=== PATIENT | female | born 1985 | race Caucasian/White ===

== ENCOUNTER 2017-02-25 17:23 | Emergency (ER) | payer MEDICAID ==
--- NOTE | 2017-02-25 19:24 | ER Document Report ---
ED Medical Screen (RME) - General Chief Complaint: Vaginal Bleeding Stated Complaint: VAGINAL BLEEDING W/ Mode of Arrival: Ambulatory Information source: Patient Notes: Reports , spotting , Rlq abd pain this am. TRAVEL OUTSIDE OF THE [place] IN LAST 30 DAYS: No - Related Data Allergies/Adverse Reactions: No Known Allergies Allergy (Verified 02/25/17 17:41) Past Medical History Neurological Medical History: Reports: Hx Migraine Endocrine Medical History: Reports: Hx Hypothyroidism Renal/ Medical History: Reports: Hx Ovarian Cysts. Denies: Hx Peritoneal Dialysis Past Surgical History: Reports: Hx Genitourinary Surgery - LEEP, Hx Oral Surgery - WISDOM TEETH - Immunizations Hx Diphtheria, Pertussis, Tetanus Vaccination: No Physical Exam - Vital signs Vitals: Temp Pulse Resp BP Pulse Ox 98.5 F 78 16 139/90 H 100 02/25/17 17:41 02/25/17 17:41 02/25/17 17:41 02/25/17 17:41 02/25/17 17:41 Course - Vital Signs Vital signs: Temp Pulse Resp BP Pulse Ox 98.5 F 78 16 139/90 H 100 02/25/17 17:41 02/25/17 17:41 02/25/17 17:41 02/25/17 17:41 02/25/17 17:41
[2017-02-25 20:35] LABS: ABSOLUTE EOSINOPHILS # (AUTO) 0.1 10^3/uL (0.0-0.6); ABSOLUTE LYMPHOCYTES (AUTO) 3.4 10^3/uL (0.5-4.7); ABSOLUTE MONOCYTES (AUTO) 0.5 10^3/uL (0.1-1.4); BASOPHILS % (AUTO) 0.3 % (0-2); EOSINOPHILS % (AUTO) 0.6 % (0-6); HEMOGLOBIN 13.5 g/dL (12.0-15.5); HGB HCT DIFFERENCE 0.5; LYMPHOCYTES % (AUTO) 30.8 % (13-45); MEAN CORPUSCULAR HEMOGLOBIN 30.7 pg (27.0-33.4); MEAN CORPUSCULAR HGB CONC 33.7 g/dL (32.0-36.0); MEAN CORPUSCULAR VOLUME 91 fl (80-97); MONOCYTES % (AUTO) 4.7 % (3-13); RED CELL DISTRIBUTION WIDTH 13.4 % (11.5-14.0); SEGMENTED NEUTROPHILS % (AUTO) 63.6 % (42-78)
[2017-02-25 20:38] LABS: APPEARANCE,URINE SLIGHTLY-CLOUDY; BILIRUBIN,URINE NEGATIVE (NEGATIVE); GLUCOSE, URINE NEGATIVE (NEGATIVE); KETONES,URINE 20 mg/dL (NEGATIVE); LEUKOCYTE ESTERASE,URINE TRACE (NEGATIVE); NITRITE,URINE NEGATIVE (NEGATIVE); PROTEIN,URINE NEGATIVE (NEGATIVE); URINE SPECIFIC GRAVITY 1.006; UROBILINOGEN,URINE NEGATIVE mg/dL (<2.0)
[2017-02-25 20:50] LABS: ALANINE AMINOTRANSFERASE 28 U/L (9-52); ALBUMIN 4.7 g/dL (3.5-5.0); ALKALINE PHOSPHATASE 60 U/L (38-126); ANION GAP 15 (5-19); ASPARTATE AMINO TRANSFERASE 21 U/L (14-36); BILIRUBIN,DIRECT 0.2 mg/dL (0.0-0.4); BILIRUBIN,TOTAL 0.9 mg/dL (0.2-1.3); BLOOD UREA NITROGEN 9 mg/dL (7-20); CARBON DIOXIDE 23 mmol/L (22-30); CHLORIDE 104 mmol/L (98-107); CREATININE RESULT 0.67 mg/dL (0.52-1.25); GLUCOSE 78 mg/dL (75-110); POTASSIUM 4.5 mmol/L (3.6-5.0); SODIUM 141.5 mmol/L (137-145); TOTAL PROTEIN 7.5 g/dL (6.3-8.2)
--- NOTE | 2017-02-25 21:09 | ER Document Report ---
ED General - General Chief Complaint: Vaginal Bleeding Stated Complaint: VAGINAL BLEEDING W/ Mode of Arrival: Ambulatory Information source: Patient Notes: Patient presents to the emergency department with complaints of spotting on and off since Sunday morning. She reports vaginal bleeding only when she wipes. She noted a few drops of blood in her underwear over. She never had to wear a panty liner. Patient reports right lower quadrant abdominal pain that started this morning. No pain now. Reports she is last menstrual period at the end of December. . Reports she had a confirmation of this at her primary care provider but has not had a checkup by her GUN STOCK MAKER. Denies trauma. Denies other symptoms such as fever vomiting diarrhea. History of hypothyroidism. Denies trauma. Denies pain with void denies vaginal discharge. TRAVEL OUTSIDE OF THE [place] IN LAST 30 DAYS: No - HPI Onset: Yesterday Onset/Duration: Waxing and waning Quality of pain: Cramping Severity: Moderate Pain Level: 3 - DECLINES PAIN MEDICATION Associated symptoms: None Exacerbated by: Denies Relieved by: Denies Similar symptoms previously: No Recently seen / treated by doctor: No - Related Data Allergies/Adverse Reactions: No Known Allergies Allergy (Verified 02/25/17 17:41) Past Medical History - General Information source: Patient Last Menstrual Period: End december - Social History Smoking Status: Unknown if Ever Smoked Cigarette use (# per day): No Frequency of alcohol use: Occasional Drug Abuse: None Lives with: Family Family History: Reviewed & Not Pertinent Patient has suicidal ideation: No Patient has homicidal ideation: No Neurological Medical History: Reports: Hx Migraine Endocrine Medical History: Reports: Hx Hypothyroidism Renal/ Medical History: Reports: Hx Ovarian Cysts. Denies: Hx Peritoneal Dialysis Past Surgical History: Reports: Hx Genitourinary Surgery - LEEP, Hx Oral Surgery - WISDOM TEETH - Immunizations Hx Diphtheria, Pertussis, Tetanus Vaccination: No Review of Systems - Review of Systems Notes: Review HPI for review of systems., All other systems negative Physical Exam - Vital signs Vitals: Temp Pulse Resp BP Pulse Ox 98.5 F 78 16 139/90 H 100 02/25/17 17:41 02/25/17 17:41 02/25/17 17:41 02/25/17 17:41 02/25/17 17:41 - Notes Notes: PHYSICAL EXAMINATION: GENERAL: Well-appearing and in no acute distress nontoxic looking HEAD: Atraumatic, normocephalic. EYES: Pupils equal round , extraocular movements intact, sclera anicteric, conjunctiva are normal. ENT: nares patent, oropharynx clear without exudates. Moist mucous membranes. NECK: Normal range of motion, supple without lymphadenopathy LUNGS: CTAB and equal. No wheezes rales or rhonchi. HEART: Regular rate and rhythm without murmurs ABDOMEN: Soft, no tenderness. no pain with palpation No guarding, no rebound BACK: Denies pain EXTREMITIES: Normal range of motion, no pitting edema. No cyanosis. NEUROLOGICAL: Cranial nerves grossly intact. Normal sensory/motor exams. PSYCH: Normal mood, normal affect. SKIN: Warm, Dry, normal turgor, no rashes or lesions noted Course - Re-evaluation Re-evalutation: 02/25/17 21:17 Patient reports vaginal bleeding has tapered off. Denies abdominal pain. Waiting for ultrasound. 02/26/17 Patient instructed on hCG 169.75. Patient was also instructed on ultrasound no IUP identified. We discussed miscarriage versus ectopic. Patient was instructed on the importance of follow-up with repeat hCG. rhogram ordered. She will follow up with repeat hCG and contact me on Sunday. Patient was also instructed on importance of follow-up with her primary care provider or SENIOR LINUX ADMINISTRATOR as soon as possible. She verbalized understanding to all instructions. - Vital Signs Vital signs: Temp Pulse Resp BP Pulse Ox 97.4 F 82 16 126/87 H 99 02/25/17 23:25 02/25/17 23:25 02/25/17 23:25 02/25/17 23:25 02/25/17 23:25 - Laboratory Result Diagrams: 02/25/17 19:45 02/25/17 19:45 Laboratory results interpreted by me: 02/25/17 02/25/17 02/25/17 19:45 19:45 19:50 WBC 11.0 H Beta HCG, Quant 169.75 H Urine Ketones 20 H Urine Blood MODERATE H Ur Leukocyte Esterase TRACE H - Diagnostic Test Radiology reviewed: Image reviewed, Reports reviewed - Diagnostic report text EXAM DESCRIPTION: U/S OB TRANSVAGINAL W/O DOP COMPLETED DATE/TIME: 02/25/2017 10:00 pm REASON FOR STUDY: , bleeding COMPARISON: None. TECHNIQUE : Dynamic and static grayscale images acquired of the pelvis via transvaginal approach and recorded on PACS. Additional selected color Doppler and spectral images recorded. LIMITATIONS: None. FINDINGS: UTERUS: Contour normal. No mass. ENDOMETRIAL STRIPE: No focal or generalized thickening. No masses. CERVIX: No nabothian cysts. RIGHT OVARY: 2.3 cm cyst RIGHT OVARY DOPPLER: Normal arterial vascular flow without evidence for torsion. LEFT OVARY: No abnormal masses. LEFT OVARY DOPPLER: Normal arterial vascular flow without evidence for torsion. FREE FLUID: None noted. OTHER: No other significant finding. MEASUREMENTS: UTERUS: 7.3 x 5.2 x 4.4 cm ENDOMETRIAL STRIPE: 1.4 cm RIGHT OVARY: 3.8 x 3.7 x 2.2 cm LEFT OVARY: 3.5 x 1.9 x 1.9 cm TECHNICAL DOCUMENTATION: JOB ID: [id number] [employer]- All Rights Reserved US/U/S OB TRANSVAGINAL W/O DOP IMPRESSION: No IUP identified. No adnexal masses or free fluid. Discharge - Discharge Clinical Impression: Vaginal bleeding, , Elevated blood pressure reading Condition: Stable Disposition: HOME, SELF-CARE Instructions: Ob-Sales Team Manager Doctors, [facility], ([facility]) , [facility] ([facility]) Additional Instructions: *You have been evaluated for abdominal pain, vaginal bleeding, elevated blood pressure reading *Since we cannot see the on the ultrasound, you will need a beta-hCG blood level repeated. Please return to the outpatient lab at [facility] with your lab slip for this repeat test in 48 hours. Since ectopic can cause in a matter of hours, you must not be left alone at this time until you are cleared by your doctor for this diagnosis. Until then please maintain pelvic rest, meaning no sex until cleared to do so. Return right away with vaginal bleeding or severe pain. Your HCG level today was 169.75. You will need a repeat HCG level on SundayFebruary 27. Call Pat at [phone] two hours after your blood test for your results. *Follow up with your primary care provider for recheck within one week Follow up with the health department as scheduled *Return to ED for worsening condition, changes, needs *Return to ED if not better in 24 hours Monitor your blood pressure. Your blood pressure was elevated today. This may be because you were anxious, in pain or because you need medication. It is important to follow up with your primary care provider for full evaluation. Forms: Elevated Blood Pressure, Follow-Up Laboratory Testing
[2017-02-26 00:36] VITALS: BP 126/87
== END 2017-02-25 23:25 | disposition home or self-care (01) ==
LOC: ER 17:23
DX: O46.90 Antepartum hemorrhage, unspecified, unspecified trimester (principal); O26.899 Other specified pregnancy related conditions, unspecified trimester; R10.31 Right lower quadrant pain; R03.0 Elevated blood-pressure reading, without diagnosis of hypertension; O36.0990 Maternal care for other rhesus isoimmunization, unspecified trimester, not applicable or unspecified; Z3A.00 Weeks of gestation of pregnancy not specified; Z87.42 Personal history of other diseases of the female genital tract
CPT/HCPCS: 99284; 86900; 86901; 36415; 86850; 84702; 85025; 80053; 81001; 76817; J2790

== ENCOUNTER → 2017-02-27 | Outpatient (CLI) | payer MEDICAID | LOC: OD 07:54 | PROVIDERS: ATTEND Nurse Practitioner Family | DX: O46.90 Antepartum hemorrhage, unspecified, unspecified trimester (principal); Z3A.00 Weeks of gestation of pregnancy not specified | CPT/HCPCS: 36415; 84702 ==

== ENCOUNTER 2017-03-02 19:36 | Emergency (ER) | payer MEDICAID ==
--- NOTE | 2017-03-02 20:09 | ER Document Report ---
ED Medical Screen (RME) - General Chief Complaint: Vaginal Bleeding Stated Complaint: VAGINAL BLEEDING,RIGHT LOWER ABDOMINAL PAIN Time Seen by Provider: 03/02/17 20:07 Notes: The patient is a 32-year-old female, LMP 01/23/2017, presents with increasing vaginal bleeding, soaking through a pad every 4 hours. She says the blood is dark and noticed small amounts of clots. She was seen in the emergency room 5 days ago and her beta hCG was 160s. A repeat hCG level was done 48 hours later and it had doubled to 320s. Her ultrasound had not shown an IUP. Patient says that the bleeding has worsened and her abdominal cramping has worsened. PE: NAD. No abdominal tenderness. I have greeted and performed a rapid initial assessment of this patient. A comprehensive ED assessment and evaluation of the patient, analysis of test results and completion of the medical decision making process will be conducted by additional ED providers. TRAVEL OUTSIDE OF THE [place] IN LAST 30 DAYS: No - Related Data Allergies/Adverse Reactions: No Known Allergies Allergy (Verified 02/25/17 17:41) Past Medical History Neurological Medical History: Reports: Hx Migraine Endocrine Medical History: Reports: Hx Hypothyroidism Renal/ Medical History: Reports: Hx Ovarian Cysts. Denies: Hx Peritoneal Dialysis Past Surgical History: Reports: Hx Genitourinary Surgery - LEEP, Hx Oral Surgery - WISDOM TEETH - Immunizations Hx Diphtheria, Pertussis, Tetanus Vaccination: No Physical Exam - Vital signs Vitals: Temp Pulse Resp BP Pulse Ox 98.1 F 71 18 120/73 100 03/02/17 19:52 03/02/17 19:52 03/02/17 19:52 03/02/17 19:52 03/02/17 19:52 Course - Vital Signs Vital signs: Temp Pulse Resp BP Pulse Ox 98.1 F 71 18 120/73 100 03/02/17 19:52 03/02/17 19:52 03/02/17 19:52 03/02/17 19:52 03/02/17 19:52
--- NOTE | 2017-03-02 21:49 | ER Document Report ---
ED General - General Chief Complaint: Vaginal Bleeding Stated Complaint: VAGINAL BLEEDING,RIGHT LOWER ABDOMINAL PAIN Time Seen by Provider: 03/02/17 20:07 Mode of Arrival: Ambulatory Information source: Patient Notes: This is a 32-year-old female 2 para 1 Last normal menstrual period in the end of December. The patient initially presented with crampy right lower quadrant pain on February 25 and an OB ultrasound at that time showed no intrauterine gestation. Patient had a low beta at that time. She states that she had increasing bleeding today, cramping and more pain in the right lower side. Patient denies any fever, chills, nausea vomiting. TRAVEL OUTSIDE OF THE [place] IN LAST 30 DAYS: No - HPI Onset: This morning Onset/Duration: Gradual Quality of pain: Dull Severity: Moderate Pain Level: 2 Associated symptoms: denies: Chills, Fever, Nausea, Vomiting, Shortness of breath Exacerbated by: Denies Relieved by: Denies Similar symptoms previously: Yes Recently seen / treated by doctor: Yes - Related Data Allergies/Adverse Reactions: No Known Allergies Allergy (Verified 02/25/17 17:41) Past Medical History - General Information source: Patient - Social History Smoking Status: Never Smoker Cigarette use (# per day): No Chew tobacco use (# tins/day): No Frequency of alcohol use: None Drug Abuse: None Lives with: Spouse/Significant other Family History: Reviewed & Not Pertinent Patient has suicidal ideation: No Patient has homicidal ideation: No - Past Medical History Cardiac Medical History: Reports: None Pulmonary Medical History: Reports: None Neurological Medical History: Reports: Hx Migraine Endocrine Medical History: Reports: Hx Hypothyroidism Renal/ Medical History: Reports: Hx Ovarian Cysts. Denies: Hx Peritoneal Dialysis Malignancy Medical History: Reports: None GI Medical History: Reports: None Musculoskeltal Medical History: Reports None Skin Medical History: Reports None Psychiatric Medical History: Reports: None Infectious Medical History: Reports: None Past Surgical History: Reports: Hx Genitourinary Surgery - LEEP, Hx Oral Surgery - WISDOM TEETH - Immunizations Hx Diphtheria, Pertussis, Tetanus Vaccination: No Review of Systems - Review of Systems Constitutional: denies: Chills, Fever EENT: No symptoms reported Cardiovascular: No symptoms reported Respiratory: No symptoms reported Gastrointestinal: No symptoms reported Genitourinary: See HPI Female Genitourinary: See HPI Musculoskeletal: No symptoms reported Skin: No symptoms reported Hematologic/Lymphatic: No symptoms reported Neurological/Psychological: No symptoms reported Physical Exam - Vital signs Vitals: Temp Pulse Resp BP Pulse Ox 98.1 F 71 18 120/73 100 03/02/17 19:52 03/02/17 19:52 03/02/17 19:52 03/02/17 19:52 03/02/17 19:52 Notes: Physical exam: GENERAL: 32-year-old female, alert and oriented 3, no acute distress HEAD: Atraumatic, normocephalic. EYES: Pupils equal round and reactive to light, extraocular movements intact, sclera anicteric, conjunctiva are normal. ENT: Moist mucous membranes. NECK: Normal range of motion, supple without lymphadenopathy or JVD. LUNGS: Breath sounds clear to auscultation bilaterally and equal. No wheezes rales or rhonchi. HEART: Regular rate and rhythm without murmurs, rubs or gallops. ABDOMEN: Soft, normoactive bowel sounds. No tenderness to palpation. No guarding, no rebound. No masses appreciated. Vaginal: External genitalia normal, blood in vault, os. Small amount of clots. The canal was cleaned out of the blood. No further active bleeding from the cervical os. No cervical motion tenderness. No adnexal tenderness. No adnexal masses. The patient tolerated the procedure well. Metallurgical Lab Technician was present (nurse Lew). EXTREMITIES: Normal range of motion, no pitting or edema. No clubbing or cyanosis. NEUROLOGICAL: Cranial nerves II through XII grossly intact. Normal speech, normal gait. PSYCH: Normal mood, normal affect. SKIN: Warm, Dry, normal turgor, no rashes or lesions noted. Course - Re-evaluation Re-evalutation: 03/02/17 23:17 I've had a discussion with the patient and her significant other at the bedside. I've given them a copy of the beta Quant's. I have discussed the case with Dr. Palm of obstetrics. It looks like initially the patient's beta Quant kathy appropriately in the day and a half after her first evaluation. Now it seems like her bleeding significantly worsened today and now the beta is less than it was on February 27. This is suggestive of an abnormal . The only issue is she having a miscarriage or could she potentially have an ectopic . The ultrasound does not show any location for the at this time. The patient is hemodynamically stable and her abdomen exam is quite soft and benign at this time. After discussing the case with Dr. Palm , we've come up with the plan to follow the patient on Sunday in the [facility] to be reevaluated with a repeat beta hCG. I have told the patient that if she is unable to get into the [facility], she should return to the emergency room on Sunday. 03/02/17 23:19 Note: Patient's blood type is O- and she was treated with RhoGAM February 25. - Vital Signs Vital signs: Temp Pulse Resp BP Pulse Ox 98.6 F 59 L 16 117/70 98 03/02/17 22:11 03/02/17 22:11 03/02/17 22:11 03/02/17 22:11 03/02/17 22:11 - Laboratory Laboratory results interpreted by me: 03/02/17 20:13 Beta HCG, Quant 297.12 H - Diagnostic Test Radiology reviewed: Image reviewed, Reports reviewed - No evidence of IUP on the ultrasound. Discharge - Discharge Clinical Impression: VAGINAL BLEEDING EARLY Condition: Stable Disposition: HOME, SELF-CARE Additional Instructions: Recommendations: Rest, take it easy, drink plenty of fluids. I would not travel this weekend. I want you to follow-up in the [facility] clinic on Sunday morning. Tell the acoustical logging engineer that the ER doctor at spoken to Dr. Palm and they wanted to followed up for repeat exam and blood testing. You have had abnormal rise in beta Quant's blood tests. If you are unable to get to the [facility] on Sunday, return to the emergency room for repeat repeat beta Quant Return to the ER at once if you have any worsening pain or worsening bleeding or feeling faint or any concerns that you may be getting worse. Tylenol for cramping is okay. Benadryl is also safe. Forms: Return to Work
[2017-03-02 22:13] VITALS: BP 117/70
== END 2017-03-02 22:13 | disposition home or self-care (01) ==
LOC: ER 19:36
DX: O20.9 Hemorrhage in early pregnancy, unspecified (principal); O26.899 Other specified pregnancy related conditions, unspecified trimester; R10.31 Right lower quadrant pain; O36.0990 Maternal care for other rhesus isoimmunization, unspecified trimester, not applicable or unspecified; Z3A.00 Weeks of gestation of pregnancy not specified; Z87.42 Personal history of other diseases of the female genital tract
CPT/HCPCS: 36415; 76817; 84702; 99284